=== PATIENT | male | born 1970 | race Caucasian/White ===

== ENCOUNTER → 2022-09-08 | Outpatient (CLI) | payer BC | LOC: SLEEPLAB 17:00 | PROVIDERS: ATTEND Family Medicine | DX: G47.33 Obstructive sleep apnea (adult) (pediatric) (principal); R06.83 Snoring | CPT/HCPCS: 95800 ==

== ENCOUNTER 2022-10-23 19:00 | Outpatient (CLI) | payer BC | END 2022-10-23 19:01 | disposition home or self-care (01) | LOC: SLEEPLAB 19:00 | PROVIDERS: ATTEND Family Medicine | DX: G47.33 Obstructive sleep apnea (adult) (pediatric) (principal); R06.83 Snoring | CPT/HCPCS: 95810 ==

== ENCOUNTER 2022-12-13 19:00 | Outpatient (CLI) | payer BC | END 2022-12-13 19:01 | disposition home or self-care (01) | LOC: SLEEPLAB 19:00 | PROVIDERS: ATTEND Family Medicine | DX: G47.33 Obstructive sleep apnea (adult) (pediatric) (principal); R06.83 Snoring | CPT/HCPCS: 95811 ==